=== PATIENT | female | born 1965 | race African-American/Black ===

== ENCOUNTER 2019-12-12 16:46 | Emergency (ER) | payer OTHER ==
--- NOTE | 2019-12-12 17:11 | PDOC ---
History of Present Illness - General Chief Complaint: Blood Pressure Problem Stated Complaint: HYPERTENTION/POSSIBLE DVT Time Seen by Provider: 12/12/19 17:03 - History of Present Illness Initial Comments: 12/12/19 17:31 54 F with hx of right shoulder surgery, hystectomy, presented to the ED for "High Blood Pressure". Patient has been have 1 week of calves and legs pains , more of the right side than left. Denies injury/fall/hx of blood clot, recent traveling, recent OCP use. Pain was so intense that today, she has to go to her PCP; there they found out she had high blood pressure. They were about to diagnose her with HTN and started her on Hydrochlorothiazide. She went to [facility] which revealed Initial BP of 200s/140s, repeated BP showed 179/116. She currently endorse diaphoresis, and legs pain. Denies F/N/V/D, chest pain, back pain, change of vision, abdominal pain. PMHX: none PSHX: see above Meds: none Allergies: none Tob: 4 cigs/per day over 20 years Etoh: denies Rec drugs:denies PCP: has one. ROS GENERAL/CONSTITUTIONAL: No fever or chills. No weakness. HEAD, EYES, EARS, NOSE AND THROAT: No change in vision. No ear pain or discharge. No sore throat. CARDIOVASCULAR: No chest pain or shortness of breath RESPIRATORY: No cough, wheezing, or hemoptysis. GASTROINTESTINAL: No nausea, vomiting, diarrhea or constipation. GENITOURINARY: No dysuria, frequency, or change in urination. MUSCULOSKELETAL: +Legs pain. No neck or back pain. SKIN: No rash NEUROLOGIC: No headache, vertigo, loss of consciousness, or change in strength/sensation. ENDOCRINE: No increased thirst. No abnormal weight change HEMATOLOGIC/LYMPHATIC: No anemia, easy bleeding, or history of blood clots. ALLERGIC/IMMUNOLOGIC: No hives or skin allergy. PE GENERAL: Awake, alert, and fully oriented, in mild acute distress. OBESE. anxious. HEAD: No signs of trauma, normocephalic, atraumatic EYES: PERRLA, EOMI, sclera anicteric, conjunctiva clear ENT: Auricles normal inspection, hearing grossly normal, nares patent, oropharynx clear without exudates. Moist mucosa NECK: Normal ROM, supple, no lymphadenopathy, JVD, or masses LUNGS: No distress, speaks full sentences, clear to auscultation bilaterally HEART: Regular rate and rhythm, normal S1 and S2, no murmurs, rubs or gallops, peripheral pulses normal and equal bilaterally. ABDOMEN: Soft, nontender, normoactive bowel sounds. No guarding, no rebound. No masses EXTREMITIES : Normal inspection, Normal range of motion, no edema. No clubbing or cyanosis. Tenderness upon deep pressinng on calves and posterior thigh. more on right>left. NEUROLOGICAL: Cranial nerves II through XII grossly intact. Normal speech, normal gait, no focal sensorimotor deficits SKIN: Warm, Dry, normal turgor, no rashes or lesions noted Past History - Medical History Allergies/Adverse Reactions: Allergies Allergy/AdvReac Type Severity Reaction Status Date / Time No Known Drug Allergies Allergy Verified 12/12/19 17:04 Home Medications: Ambulatory Orders Cyclobenzaprine HCl [Flexeril -] 1 tab PO BID PRN 12/12/19 Naproxen [Naprosyn -] 250 mg PO BID PRN 12/12/19 Anemia: No Asthma: No Cancer: No Cardiac Disorders: No CVA: No COPD: No CHF: No Dementia: No Diabetes: No GI Disorders: No Disorders: No HTN: No Hypercholesterolemia: No Liver Disease: No Seizures: No Thyroid Disease: No Other medical history: DENIES - Reproductive History Is Patient Now?: No - Immunization History Immunization Up to Date: No - Psycho-Social/Smoking History Smoking History: Current every day smoker Have you smoked in the past 12 months: Yes Number of Cigarettes Smoked Daily: 4 Information on smoking cessation initiated: No 'Breaking Loose' booklet given: 01/14/16 - Substance Abuse Hx (Audit-C & DAST Scrn) How often the patient has a drink containing alcohol: Never Score: In Men: 4 or > Positive; In Women: 3 or > Positive: 0 Screen Result (Pos requires Nsg. Audit-10AR): Negative In the last yr the pt used illegal drug/Rx for NonMed reason: No Score: Yes response is considered Positive: 0 Screen Result (Positive result requires Nsg. DAST-10): Negative *Physical Exam - Vital Signs Last Vital Signs Temp Pulse Resp BP Pulse Ox 97.8 F 95 H 20 204/140 H 100 12/12/19 17:04 12/12/19 17:04 12/12/19 17:04 12/12/19 17:04 12/12/19 17:04 ED Treatment Course - LABORATORY CBC & Chemistry Diagram: 12/12/19 17:40 12/12/19 17:40 Medical Decision Making - Medical Decision Making 12/12/19 17:38 54 years old presented to the ED with asymptomatic elevated BP and legs pain. Obesity, smoker, legs pain over week without injury Concerning for PE Lab: CBC, CMP, Trop , EKG, coag+ duplex of extremities. Vital sign: non tachycardic + full SpO2 on RA, normal RR. 12/12/19 18:30 EKG : normal sinus rhym, vent rate 88, no ST changes . Normal EKG. 12/12/19 18:34 Duplex is negative for DVT. 12/12/19 18:45 The pain patient referred to most likely due to arthritis. PCP already prescribed HCT. Patient was given a summary of the ED course. Patient is stable to wa home. Discharge - Discharge Information Problems reviewed: Yes Clinical Impression/Diagnosis: Right leg pain, Elevated blood pressure reading Hypertension Qualifiers: Hypertension type: unspecified Qualified Code(s): I10 - Essential (primary) hypertension Condition: Good Disposition: HOME - Admission No - Follow up/Referral Referrals: Ced Phelps MD [Staff Physician] - Dave France DO [Staff Physician] - Keesha Bray DO [Primary Care Provider] - - Patient Discharge Instructions Patient Printed Discharge Instructions: DI for High Blood Pressure, How to Mon itor Your Blood Pressure at Home Additional Instructions: You are here for leg pain and high blood pressure. We did a lot of tests, and imaging. We rule out the emergent causes. For the leg pain, please use tylenol or NSAID, read the prescribed label. Please don't over dose. Please stop smoking, and lose weight, this is making the knee arthritis worse. Please follow up with your PCP. She can refer you to Orthopedic doctor. We gave you 2 orthopedic doctors in house incase you don't have one. Please use the high blood pressure medication that your PCP prescribed to you. We will give you a dose of medication here. Please come back to ED if you have change of vision, nausea, vomiting, dizziness, or unable to walk. It is important that you must follow up with your PCP within the next 48 hours. - Post Discharge Activity
--- NOTE | 2019-12-12 17:14 | PDOC ---
Rapid Medical Evaluation Time Seen by Provider: 12/12/19 17:03 Medical Evaluation: Allergies Allergy/AdvReac Type Severity Reaction Status Date / Time No Known Drug Allergies Allergy Verified 12/12/19 17:04 Vital Signs Temp Pulse Resp BP Pulse Ox 97.8 F 95 H 20 204/140 H 100 12/12/19 17:04 12/12/19 17:04 12/12/19 17:04 12/12/19 17:04 12/12/19 17:04 12/12/19 17:07 I have performed a brief in-person evaluation of this patient. The patient presents with a chief complaint of: RLE pain x 1 week. No trauma but went to dancing prior to onset of sxs. No other sxs. Seen in clinic and sent in to r/o DVT. Morbidly obesed, smoker Pertinent physical exam findings:BP sig elevated at triage, in NAD I have ordered the following:labs/US The patient will proceed to the ED for further evaluation. Discharge Disposition - Diagnosis Right leg pain, Elevated blood pressure reading - Referrals - Patient Instructions - Post Discharge Activity
[2019-12-12 17:29] VITALS: BMI 43.4
--- NOTE | 2019-12-12 17:31 | PDOC ---
Documentation entered by Alice Cisneros SCRIBE, acting as scribe for Staci Borrego MD. Staci Borrego MD: This documentation has been prepared by the scribe, Alice Cisneros SCRIBE, under my direction and personally reviewed by me in its entirety. I confirm that the documentation accurately reflects all work, treatment, procedures, and medical decision making performed by me. Attending Attestation - Resident Resident Name: Martinez Monet - ED Attending Attestation I have performed the following: I have examined & evaluated the patient, The case was reviewed & discussed with the resident, I agree w/resident's findings & plan, Exceptions are as noted - HPI HPI: 12/12/19 17:25 Patient is a 54 year old female with a significant past medical history of smoking (4 cigs per day x20 years), knee surgeries, rt shoulder surgery, and hysterectomy who presents to the ED with elevated blood pressure level sent from PCP's office (BP 201/140). Patient also disclosed she has been having pain in legs and calves (worse on right side) that was worse today which prompted her to see PCP. Patient endorses: diaphoresis and pain in lower extremities. Patient denies: falling, any history of blood clots, fever, chills, any vision changes, nausea, vomiting, chest pain, abdominal pain, diarrhea, back pain, or any other related symptoms Allergies: NKDA - Physicial Exam PE: 12/12/19 18:27 obese 54 yo female p/w elevated blood pressure but NO complaints of chest pain or cough or shortness of breath or headaches head ncat eyes hortencia eomi neck no jvd lungs cta b/l cvs [id number] abdomen protuberant extremities no edema skin warm and dry neuro axox3 ,no gross focal deficits - Medical Decision Making 12/12/19 18:31 ekg nsr @ 88 bpm Discharge - Discharge Information Problems reviewed: Yes Clinical Impression/Diagnosis: Right leg pain, Elevated blood pressure reading Hypertension Qualifiers: Hypertension type: unspecified Qualified Code(s): I10 - Essential (primary) hypertension Condition: Good Disposition: HOME - Follow up/Referral Referrals: Ced Phelps MD [Staff Physician] - Dave Frnace DO [Staff Physician] - Keesha Bray DO [Primary Care Provider] - - Patient Discharge Instructions Patient Printed Discharge Instructions: DI for High Blood Pressure, How to Monitor Your Blood Pressure at Home Additional Instructions: You are here for leg pain and high blood pressure. We did a lot of tests, and imaging. We rule out the emergent causes. For the leg pain, please use tylenol or NSAID, read the prescribed label. Please don't over dose. Please stop smoking, and lose weight, this is making the knee arthritis worse. Please follow up with your PCP. She can refer you to Orthopedic doctor. We gave you 2 orthopedic doctors in house incase you don't have one. Please use the high blood pressure medication that your PCP prescribed to you. We will give you a dose of medication here. Please come back to ED if you have change of vision, nausea, vomiting, dizziness, or unable to walk. It is important that you must follow up with your PCP within the next 48 hours. - Post Discharge Activity
[2019-12-12 18:12] LABS: BASO % 1.1 % (0-2.0); EOS % 1.9 % (0-4.5); HEMATOCRIT 44.1 % (32.4-45.2); HEMOGLOBIN 14.2 GM/dL (10.7-15.3); LYMPH % 43.2 % (8-40); MCH 27.9 pg (25.7-33.7); MCHC 32.2 g/dl (32.0-36.0); MEAN CELL VOLUME 86.9 fl (80-96); MEAN PLT VOLUME 8.7 fl (7.5-11.1); MONO % 5.6 % (3.8-10.2); NEUT % 48.2 % (42.8-82.8); PLATELET COUNT 375 K/MM3 (134-434); RBC 5.08 M/mm3 (3.60-5.2); RDW 16.9 % (11.6-15.6); WHITE BLOOD COUNT 11.2 K/mm3 (4.0-10.0)
[2019-12-12 18:29] LABS: INR 0.94 (0.83-1.09); PROTHROMBIN TIME (PATIENT) 11.1 SEC (9.7-13.0)
[2019-12-12 18:31] LABS: ACTIVATED PTT 37.4 SECONDS (25.2-36.5)
[2019-12-12 18:41] LABS: ALBUMIN 4.2 g/dl (3.4-5.0); BILIRUBIN,TOTAL 0.5 mg/dL (0.2-1); BLOOD UREA NITROGEN 14.1 mg/dL (7-18); CALCIUM 9.8 mg/dL (8.5-10.1); CREATININE 0.9 mg/dL (0.55-1.3); TOT PROT 8.1 g/dl (6.4-8.2)
[2019-12-12] MEDS ORDERED: HYDROCHLOROTHIAZIDE 12.5 MG CAPSULE (FP) PO STA (18:46)
[2019-12-12] MEDS ORDERED: HYDROCHLOROTHIAZIDE 25 MG TABLET (FP) ONE (19:07)
[2019-12-12 19:21] LABS: URINE APPEARANCE CLEAR; URINE BILIRUBIN NEGATIVE (NEGATIVE); URINE COLOR YELLOW; URINE GLUCOSE (UA) NEGATIVE (NEGATIVE); URINE KETONE NEGATIVE (NEGATIVE); URINE LEUK ESTERASE NEGATIVE (NEGATIVE); URINE NITRITE NEGATIVE (NEGATIVE); URINE PROTEIN NEGATIVE (NEGATIVE); URINE UROBILINOGEN 0.2 mg/dL (0.2-1.0)
[2019-12-12 19:26] VITALS: BP 194/115; PULSE 86; TEMP 97.4
--- NOTE | 2019-12-13 09:07 | EKG ---
Test Reason : Blood Pressure : / mmHG Vent. Rate : 088 BPM Atrial Rate : 088 BPM P-R Int : 132 ms QRS Dur : 076 ms QT Int : 390 ms P-R-T Axes : 058 009 049 degrees QTc Int : 471 ms POOR DATA QUALITY, INTERPRETATION MAY BE ADVERSELY AFFECTED NORMAL SINUS RHYTHM NORMAL ECG NO PREVIOUS ECGS AVAILABLE Confirmed by Douglas Bass ([id number]) on 12/13/2019 9:07:11 AM Referred By: Confirmed By:Douglas Bass
== END 2019-12-12 19:15 | disposition home or self-care (01) ==
LOC: JER 16:46
DX: M79.604 Pain in right leg (principal); I10 Essential (primary) hypertension
CPT/HCPCS: 36415; 71045-TC-FY; 80053; 81003; 84484; 85025; 85610; 85730; 93005; 93010; 93970-TC; 99285-25